=== PATIENT | female | born 1935 | race Caucasian/White ===

== ENCOUNTER 2022-06-26 07:29 | Emergency (ER) | payer SELFPAY ==
[~2022-06-26] VITALS: Ht 162.6 cm; Wt 50.0 kg
[2022-06-26 09:19] LABS: BASOPHILS % 0.5 % (0.0-2.0); EOSINOPHILS % 1.6 % (0.0-5.0); HEMATOCRIT. 30.6 % (36.0-48.0); HEMOGLOBIN. 10.6 g/dL (12.0-16.0); LYMPHOCYTES % 23.3 % (20.0-50.0); MEAN CORPUSCULAR HEMOGLOBIN 31.7 pg (28.0-32.0); MEAN CORPUSCULAR VOLUME 91.9 fL (81.0-99.0); MEAN PLATELET VOLUME 7.4 fl (7.4-10.4); MONOCYTES % 6.5 % (2.0-8.0); NEUTROPHILS % 68.1 % (40.0-76.0); PLATELET 346 x1000/uL (130-400); RED BLOOD CELL COUNT 3.33 mill/uL (4.2-5.4); RED CELL DISTRIBUTION WIDTH 15.4 % (11.6-14.6)
[2022-06-26 09:29] LABS: CHLORIDE 104 mEq/L (98-107)
[2022-06-26 09:33] VITALS: BP 143/64
== END 2022-06-26 11:12 | disposition home or self-care (01) ==
LOC: ER 07:29
DX: S00.83XA Contusion of other part of head, initial encounter (principal); S00.33XA Contusion of nose, initial encounter; R04.0 Epistaxis; R94.31 Abnormal electrocardiogram [ECG] [EKG]; D64.9 Anemia, unspecified; W06.XXXA Fall from bed, initial encounter; Y93.84 Activity, sleeping; Y92.013 Bedroom of single-family (private) house as the place of occurrence of the external cause
CPT/HCPCS: 36415; 71045; 72170; 80053; 84484; 85025; 93005; 99285